=== PATIENT | male | born 1970 | race Native Hawaiian/Other Pacific Islander ===

== ENCOUNTER 2019-12-09 14:43 | Emergency (ER) | payer BC ==
[~2019-12-09] VITALS: Ht 190.5 cm; Wt 106.6 kg
[2019-12-09 14:47] VITALS: TEMP 99.1
[2019-12-09 15:19] LABS: PLATELET COUNT 290 K/uL (142-355)
[2019-12-09 15:27] LABS: POTASSIUM 3.6 mmol/L (3.6-5.2)
[2019-12-09 15:42] LABS: PARTIAL THROMBOPLASTIN TIME 24.1 SECONDS (24.5-33.6)
[2019-12-09 17:10] VITALS: BP 126/86
== END 2019-12-09 17:10 | disposition home or self-care (01) ==
LOC: ED 14:43
PROVIDERS: Hospitalist
DX: S40.012A Contusion of left shoulder, initial encounter (principal); S43.492A Other sprain of left shoulder joint, initial encounter; V97.89XA Other air transport accidents, not elsewhere classified, initial encounter; Y92.89 Other specified places as the place of occurrence of the external cause
CPT/HCPCS: 80048; 80320; 85027; 85610; 85730; 96360; 96375; 99284; J1885; J2270; J2405; Q9963